=== PATIENT | female | born 1980 | race Caucasian/White ===

== ENCOUNTER 2020-07-21 22:26 | Emergency (ER) | payer BC, OTHER ==
[~2020-07-21 22:26] MED LIST: ZOFRAN ODT 4 MG4 MG PO
[2020-07-22] MEDS ORDERED: LODINE CAP 300300 MG PO (00:44)
== END 2020-07-22 00:59 | disposition home or self-care (01) ==
LOC: ER1 22:26
DX: S62.634A Displaced fracture of distal phalanx of right ring finger, initial encounter for closed fracture (principal); S60.221A Contusion of right hand, initial encounter; Z88.2 Allergy status to sulfonamides; W22.8XXA Striking against or struck by other objects, initial encounter
CPT/HCPCS: 29130; 73130; 99283

== ENCOUNTER → 2020-11-24 | Day surgery (SDC) | payer BC ==
[~2020-11-24] MED LIST changes: +LODINE CAP 300300 MG PO
[2020-11-24 07:07] LABS: HEMOGLOBIN 13.2 gm/dl (12.3-15.3); RED BLOOD COUNT 4.38 M/UL (4.00-5.10); WHITE BLOOD COUNT 8.8 K/UL (4.5-11.0)
== END | disposition home or self-care (01) ==
LOC: OR 06:33
PROVIDERS: Obstetrics & Gynecology
DX: N92.0 Excessive and frequent menstruation with regular cycle (principal); D28.0 Benign neoplasm of vulva; Q51.28 Other and unspecified doubling of uterus; N94.0 Mittelschmerz; L82.1 Other seborrheic keratosis; E66.01 Morbid (severe) obesity due to excess calories; Z87.891 Personal history of nicotine dependence; Z68.35 Body mass index [BMI] 35.0-35.9, adult; Z88.2 Allergy status to sulfonamides; Z88.8 Allergy status to other drugs, medicaments and biological substances
CPT/HCPCS: 36415; 81001; 84703; 85025; 93005; J1100; J2001; J2250; J2405; J2704; J2795; J3010; J7030; J7120